=== PATIENT | male | born 1995 | race Caucasian/White ===

== ENCOUNTER 2024-01-28 10:54 | Emergency (ER) | payer SELFPAY ==
[~2024-01-28] VITALS: Ht 165.1 cm; Wt 75.0 kg
[2024-01-28 10:55] VITALS: O2SAT 100
[2024-01-28] MEDS: ACETAMINOPHEN 325MG TABLET PO STA (11:12)
[2024-01-28] MEDS: ONDANSETRON 4MG ODT PO STA (11:12)
[2024-01-28] MEDS ORDERED: IBUP-2029 MT (11:56)
[2024-01-28 12:20] VITALS: BP 130/77; PULSE 88; RESP 16; TEMP 36.72516; O2SAT 100
== END 2024-01-28 12:20 | disposition home or self-care (01) ==
LOC: ER 11:26
DX: S10.93XA Contusion of unspecified part of neck, initial encounter (principal); V49.59XA Passenger injured in collision with other motor vehicles in traffic accident, initial encounter; Y93.89 Activity, other specified; Y92.89 Other specified places as the place of occurrence of the external cause; Y99.8 Other external cause status
CPT/HCPCS: 71045; 72040; 99284; Q0162; Z7610